=== PATIENT | male | born 1960 | race Caucasian/White ===

== ENCOUNTER 2019-02-23 16:40 | Inpatient (IN) | payer OTHER ==
[2019-02-23 18:07] VITALS: BMI 29.9
--- NOTE | 2019-02-23 19:52 | HP ---
CIWA Score Nausea/Vomitin Muscle Tremors: 3 Anxiety: 3 Agitation: 0-Normal Activity Paroxysmal Sweats: 2 Orientation: 0-Oriented Tacttile Disturbances: 1-Very Mild Itch/Numbness Auditory Disturbances: 0-None Visual Disturbances: 0-None Headache: 2-Mild CIWA-Ar Total Score: 14 - Admission Criteria OASAS Guidelines: Admission for Medically Managed Detox: Requires at least one of the followin. CIWA greater than 12 2. Seizures within the past 24 hours 3. Delirium tremens within the past 24 hours 4. Hallucinations within the past 24 hours 5. Acute intervention needed for co occurring medical disorder 6. Acute intervention needed for co occurring psychiatric disorder 7. Severe withdrawal that cannot be handled at a lower level of care (continued vomiting, continued diarrhea, abnormal vital signs) requiring intravenous medication and/or fluids 8. Admitting History and Physical - Admission Chief Complaint: alcohol withdrawal History of Present Illness: Patient is a 58 yo male with hx of alcohol dependence is here seeking inpatient detox d/t with withdrawal sx. Reports hx of frequent ETOH blackouts, denies hx of seizures MMTP at [facility] [phone] on 100 mg reports last medicated yesterday, dose pending verification PMHX: DM II, Hep C Psych: schizophrenia non-adherent with meds History Source: Patient Limitations to Obtaining History: No Limitations - Past Medical History Psych: Yes: Schizophrenia Admission [facility] Allergies/Adverse Reactions: Allergies Allergy/AdvReac Type Severity Reaction Status Date / Time No Known Allergies Allergy Verified 02/23/19 18:02 Exam Limitations: No Limitations - Ebola screening Have you traveled outside of the country in the last 21 days: No (N) Have you had contact with anyone from an Ebola affected area: No Do you have a fever: No - Review of Systems Constitutional: Chills, Changes in sleep, Weakness EENT: reports: No Symptoms Reported Respiratory: reports: SOB with Exertion Cardiac: reports: No Symptoms Reported GI: reports: Nausea, Poor Appetite, Poor Fluid Intake, Vomiting, Abdominal cramping : reports: No Symptoms Reported Musculoskeletal: reports: Back Pain, Joint Pain Integumentary: reports: No Symptoms Reported Neuro: reports: Headache Endocrine: reports: No Symptoms Reported Hematology: reports: No Symptoms Reported Psychiatric: reports: Orientated x3, Anxious Other Systems: Reviewed and Negative Patient History - Patient Medical History Hx Anemia: No Hx Asthma: No Hx Chronic Obstructive Pulmonary Disease (COPD): No Hx Cancer: No Hx Cardiac Disorders: No Hx Congestive Heart Failure: No Hx Hypertension: No Hx Hypercholesterolemia: No Hx Pacemaker: No HX Cerebrovascular Accident: No Hx Seizures: No Hx Dementia: No Hx Diabetes: No Hx Gastrointestinal Disorders: No Hx Liver Disease: Yes (Hep C) Hx Genitourinary Disorders: No Hx Sexually Transmitted Disorders: No Hx Renal Disease (ESRD): No Hx Thyroid Disease: No Hx Human Immunodeficiency Virus (HIV): No Hx Hepatitis C: No Hx Depression: No Hx Suicide Attempt: No Hx Bipolar Disorder: No Hx Schizophrenia: Yes - Patient Surgical History Past Surgical History: No - PPD History Previous Implant?: No Documented Results: Negative w/o proof PPD to be Administered?: Yes - Smoking Cessation Smoking history: Current every day smoker Have you smoked in the past 12 months: Yes Aproximately how many cigarettes per day: 4 Hx Chewing Tobacco Use: No Initiated information on smoking cessation: Yes 'Breaking Loose' booklet given: 02/23/19 - Substance & Tx. History Hx Alcohol Use: Yes Hx Substance Use: Yes Substance Use Type: Alcohol Hx Substance Use Treatment: Yes ([facility] six month ago ) - Substances abused Alcohol Substance route: Oral Frequency: Daily Amount used: 6 PINTS OF VODKA/DAY-10 (24 oz beers) Age of first use: 15 Date of last use: 02/23/19 Admission Physical Exam BHS - Vital Signs Vital Signs: Vital Signs - 24 hr 02/23/19 18:04 Pulse Rate 101 H Respiratory 16 Rate Blood Pressure 163/90 - Physical General Appearance: Yes: Appropriately Dressed, Tremorous, Sweating, Anxious HEENTM: Yes: EOMI, Hearing grossly Normal, Normal ENT Inspection, Normocephalic , Normal Voice, KARINE, Pharynx Normal, Tm's normal, Other (cheilithis) Respiratory: Yes: Chest Non-Tender, Lungs Clear, No Respiratory Distress, No Accessory Muscle Use, Wheezing Neck: Yes: Within Normal Limits Breast: Yes: Breast Exam Deferred Cardiology: Yes: Regular Rhythm, Tachycardia Abdominal: Yes: Normal Bowel Sounds, Non Tender, Soft, Protuberent Genitourinary: Yes: Within Normal Limits Back: Yes: Normal Inspection Musculoskeletal: Yes: full range of Motion, Gait Steady, Pelvis Stable Extremities: Yes: Normal Capillary Refill, Normal Inspection, Normal Range of Motion, Non-Tender 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 intact, Fully Oriented, Alert, Motor Strength 5/5, Normal Response, Depressed Affect Integumentary: Yes: Normal Color, Dry, Warm, Other (LACERATION ON RIGHT BIG TOE , NO CELLULITIS) Lymphatic: Yes: Within Normal Limits - Diagnostic (1) Alcohol dependence with withdrawal, uncomplicated Current Visit: Yes Status: Acute (2) Methadone maintenance therapy patient Current Visit: Yes Status: Chronic Comment: MMTP 100 mg qd on [facility] dose pending verification (3) Chronic viral hepatitis C Current Visit: Yes Status: Chronic (4) Ambulates with cane Current Visit: Yes Status: Chronic (5) Wheezing Current Visit: Yes Status: Acute (6) Laceration Current Visit: Yes Status: Acute Cleared for Admission S - Detox or Rehab [facility] Level of Care: Medically Managed (ATIVAN DETOX) Breathalyzer - Breathalyzer Breathalyzer: 87 Urine Drug Screen - Test Device Lot number: [id number] Expiration date: 11/10/20 - Control Is test valid?: Yes - Results Drug screen NEGATIVE: No Urine drug screen results: MTD-Methadone Inpatient Rehab Admission - Rehab Decision to Admit Inpatient rehab admission?: No
[2019-02-23] MEDS ORDERED: MENTHOL/PHENOL 1 EACH UD MM PRN (19:57)
[2019-02-23] MEDS ORDERED: LORazepam 1 MG TABLET PO PRN (19:57)
[2019-02-23] MEDS ORDERED: MAGNESIUM HYDROX 2400MG/30ML ORAL SUSPENSION 30 ML CUP PO PRN (19:57)
[2019-02-23] MEDS ORDERED: BISMUTH SUBSALICYLATE 524 MG/30 ML UD PO PRN (19:57)
[2019-02-23] MEDS ORDERED: IBUPROFEN 400 MG TABLET (FP) PO PRN (19:57)
[2019-02-23] MEDS ORDERED: NICOTINE POLACRILEX 2 MG GUM BUC PRN (19:57)
[2019-02-23] MEDS ORDERED: MAGNESIUM CITRATE 300 ML BOTTLE PO PRN (19:57)
[2019-02-23] MEDS ORDERED: MAG HYDROX/AL HYDROX/SIMETH 30 ML UNIT-DOSE CUP PO PRN (19:57)
[2019-02-23] MEDS ORDERED: METHOCARBAMOL 500 MG TABLET PO PRN (19:57)
[2019-02-23] MEDS ORDERED: ALBUTEROL SO4 0.083% IH SOL 2.5 MG/3 ML VIAL.NEB. NEB PRN (20:04)
[2019-02-23] MEDS: LORazepam 2 MG TABLET PO SCH (22:57)
[2019-02-23] MEDS: THIAMINE HCL 100 MG TABLET (FP) PO SCH (22:58)
[2019-02-23] MEDS: BACITRACIN 15 GM TUBE TOPICAL OINTMENT TP SCH (22:58)
[2019-02-24] MEDS: LORazepam 2 MG TABLET PO SCH ×4 (06:21→22:47)
[2019-02-24 09:38] LABS: HEMATOCRIT 29.2 % (35.4-49); HEMOGLOBIN 9.9 GM/dL (11.7-16.9); MCH 36.3 pg (25.7-33.7); MEAN CELL VOLUME 106.5 fl (80-96); MEAN PLT VOLUME 9.6 fl (7.5-11.1); RBC 2.74 M/mm3 (4.00-5.60); RDW 16.4 % (11.9-15.9); WHITE BLOOD COUNT 2.3 K/mm3 (4.0-10.0)
[2019-02-24 09:50] LABS: PLATELET COUNT 25 K/MM3 (134-434)
[2019-02-24] MEDS ORDERED: METHADONE HCL 10 MG TABLET ONE (09:54)
[2019-02-24] MEDS ORDERED: METHADONE HCL 40 MG DISPERSABLE TABLET ONE (09:54)
[2019-02-24] MEDS ORDERED: METHADONE 80 MG, METHADONE 10 MG PO ONE (10:00)
[2019-02-24] MEDS ORDERED: METHADONE HCL 10 MG TABLET PO ONE (10:00)
[2019-02-24 10:03] LABS: ALBUMIN 1.8 g/dl (3.4-5.0); BILIRUBIN,TOTAL 4.5 mg/dL (0.2-1); BLOOD UREA NITROGEN 7.3 mg/dL (7-18); CALCIUM 7.6 mg/dL (8.5-10.1); CREATININE 0.9 mg/dL (0.55-1.3); POTASSIUM 3.2 mmol/L (3.5-5.1); TOT PROT 7.7 g/dl (6.4-8.2)
[2019-02-24] MEDS: PRENATAL VITAMINS W/ FOLIC ACID TABLET (FP) PO SCH (10:26)
[2019-02-24] MEDS: NICOTINE 14 MG/24 HOURS TOPICAL PATCH TD SCH (10:29)
[2019-02-24] MEDS: BACITRACIN 15 GM TUBE TOPICAL OINTMENT TP SCH ×2 (13:13→22:47)
--- NOTE | 2019-02-24 13:24 | PN ---
S CIWA - CIWA Score Nausea/Vomitin-Mild Nausea/No Vomiting Muscle Tremors: 2 Anxiety: 3 Agitation: 2 Paroxysmal Sweats: 2 Orientation: 0-Oriented Tacttile Disturbances: 1-Very Mild Itch/Numbness Auditory Disturbances: 1-Very Mild Visual Disturbances: 0-None Headache: 1-Very Mild CIWA-Ar Total Score: 13 S Progress Note (SOAP) Subjective: 58 years old male admitted on 02/22/19 for alcohol withdrawal sx management treted with librium detox regimen taking methadone 100mg po daily last dose 02/22/19 begin methadone 90 mg po today and resume 100mg tomorrow patient agrees methadone arrangement Objective: 02/24/19 14:06 Vital Signs Temperature 98.3 F 02/24/19 13:15 Pulse Rate 93 H 02/24/19 13:15 Respiratory Rate 16 02/24/19 13:15 Blood Pressure 163/81 02/24/19 13:15 O2 Sat by Pulse Oximetry (%) Laboratory Last Values WBC 2.3 K/mm3 (4.0-10.0) L 02/24/19 07:35 RBC 2.74 M/mm3 (4.00-5.60) L 02/24/19 07:35 Hgb 9.9 GM/dL (11.7-16.9) L 02/24/19 07:35 Hct 29.2 % (35.4-49) L 02/24/19 07:35 MCV 106.5 fl (80-96) H 02/24/19 07:35 MCH 36.3 pg (25.7-33.7) H 02/24/19 07:35 MCHC 34.0 g/dl (32.0-35.9) 02/24/19 07:35 RDW 16.4 % (11.9-15.9) H 02/24/19 07:35 Plt Count 25 K/MM3 (134-434) L* 02/24/19 07:35 MPV 9.6 fl (7.5-11.1) 02/24/19 07:35 Sodium 139 mmol/L (136-145) 02/24/19 07:35 Potassium 3.2 mmol/L (3.5-5.1) L 02/24/19 07:35 Chloride 107 mmol/L (98-107) 02/24/19 07:35 Carbon Dioxide 28 mmol/L (21-32) 02/24/19 07:35 Anion Gap 4 MMOL/L (8-16) L 02/24/19 07:35 BUN 7.3 mg/dL (7-18) 02/24/19 07:35 Creatinine 0.9 mg/dL (0.55-1.3) 02/24/19 07:35 Est GFR (CKD-EPI)AfAm 108.73 02/24/19 07:35 Est GFR (CKD-EPI)NonAf 93.82 02/24/19 07:35 Random Glucose 96 mg/dL (74-106) 02/24/19 07:35 Calcium 7.6 mg/dL (8.5-10.1) L 02/24/19 07:35 Total Bilirubin 4.5 mg/dL (0.2-1) H 02/24/19 07:35 AST 105 U/L (15-37) H 02/24/19 07:35 ALT 32 U/L (13-61) 02/24/19 07:35 Alkaline Phosphatase 123 U/L (45-117) H 02/24/19 07:35 Total Protein 7.7 g/dl (6.4-8.2) 02/24/19 07:35 Albumin 1.8 g/dl (3.4-5.0) L 02/24/19 07:35 RPR Titer Nonreactive (NONREACTIVE) 02/24/19 07:35 lab noted low plt discontinue motrin low K+ begin K+ supplement repeat K+ 02/24/19 14:10 Assessment: 02/24/19 14:10 alcohol withdrawal sx Plan: continue librium detox regimen
[2019-02-24] MEDS ORDERED: POTASSIUM CHLORIDE ORAL LIQUID 20 MEQ/15 ML PO ONE (14:08)
--- NOTE | 2019-02-24 16:58 | CONSULT ---
[facility] Psychiatric Consult - Data Date of interview: 02/24/19 Admission source: [facility] Identifying data: Clinical Quality Assurance Specialist approached for ticket writer for psychiatric consultation but patient was lethargic and somnolent. Nursing staff informed. Psychiatric consultation deferred.
[2019-02-24] MEDS: THIAMINE HCL 100 MG TABLET (FP) PO SCH (22:47)
[2019-02-24] MEDS: POTASSIUM CHLORIDE TABS 20 MEQ TABLET.ER (FP) PO SCH (22:47)
[2019-02-25] MEDS ORDERED: METHADONE HCL 40 MG DISPERSABLE TABLET ONE (04:54)
[2019-02-25] MEDS ORDERED: METHADONE HCL 10 MG TABLET ONE (04:54)
[2019-02-25] MEDS ORDERED: METHADONE HCL 40 MG DISPERSABLE TABLET PO SCH (06:00)
[2019-02-25] MEDS: METHADONE 80 MG, METHADONE 20 MG PO SCH (06:46)
[2019-02-25] MEDS: LORazepam 1 MG TABLET PO SCH ×4 (06:47→22:01)
[2019-02-25] MEDS: BACITRACIN 15 GM TUBE TOPICAL OINTMENT TP SCH ×2 (10:44→21:43)
[2019-02-25 10:47] LABS: BASO % 0.5 % (0-2.0); EOS % 3.2 % (0-4.5); HEMATOCRIT 31.9 % (35.4-49); HEMOGLOBIN 10.7 GM/dL (11.7-16.9); LYMPH % 25.3 % (8-40); MCH 36.2 pg (25.7-33.7); MCHC 33.4 g/dl (32.0-35.9); MEAN CELL VOLUME 108.3 fl (80-96); MEAN PLT VOLUME 9.8 fl (7.5-11.1); RBC 2.94 M/mm3 (4.00-5.60); RDW 16.6 % (11.9-15.9); WHITE BLOOD COUNT 3.2 K/mm3 (4.0-10.0)
[2019-02-25 10:50] LABS: PLATELET COUNT 36 K/MM3 (134-434)
[2019-02-25] MEDS: POTASSIUM CHLORIDE TABS 20 MEQ TABLET.ER (FP) PO SCH ×2 (10:50→10:54)
[2019-02-25] MEDS: PRENATAL VITAMINS W/ FOLIC ACID TABLET (FP) PO SCH (10:50)
[2019-02-25] MEDS: NICOTINE 14 MG/24 HOURS TOPICAL PATCH TD SCH (10:50)
[2019-02-25 12:18] LABS: ANISOCYTOSIS 1+; MACROCYTOSIS 2+; PLATELET ESTIMATE DECREASED
--- NOTE | 2019-02-25 12:18 | PN ---
S CIWA - CIWA Score Nausea/Vomitin-Mild Nausea/No Vomiting Muscle Tremors: 1-None Visible, but [place] Anxiety: 1-Mildly Anxious Agitation: 1-Slight > Activity Paroxysmal Sweats: No Perspiration Orientation: 0-Oriented Tacttile Disturbances: 1-Very Mild Itch/Numbness Auditory Disturbances: 0-None Visual Disturbances: 0-None Headache: 2-Mild CIWA-Ar Total Score: 7 BHS Progress Note (SOAP) Subjective: alert,drowsy at time,nausea Objective: 02/25/19 12:17 Vital Signs Temperature 97.6 F 02/25/19 09:13 Pulse Rate 97 H 02/25/19 09:13 Respiratory Rate 16 02/25/19 09:13 Blood Pressure 145/79 02/25/19 09:13 O2 Sat by Pulse Oximetry (%) Laboratory Results - last 24 hr 02/24/19 02/25/19 02/25/19 16:21 06:27 07:00 WBC RBC Hgb Hct MCV MCH MCHC RDW Plt Count MPV Absolute Neuts (auto) Neutrophils % Lymphocytes % Monocytes % Eosinophils % Basophils % Nucleated RBC % Potassium 5.0 POC Glucometer 119 77 02/25/19 07:00 WBC 3.2 L RBC 2.94 L Hgb 10.7 L Hct 31.9 L MCV 108.3 H MCH 36.2 H MCHC 33.4 RDW 16.6 H Plt Count 36 L* D MPV 9.8 Absolute Neuts (auto) 1.9 Neutrophils % 59.0 Lymphocytes % 25.3 Monocytes % 12.0 H Eosinophils % 3.2 Basophils % 0.5 Nucleated RBC % 0 Potassium POC Glucometer Assessment: 02/25/19 12:17 withdrawal symptom Plan: continue detox ativan regimen,,platelet count 36k,repeat cbc,cmp,inr in am, ammonia level in am
[2019-02-25] MEDS: THIAMINE HCL 100 MG TABLET (FP) PO SCH (21:43)
[2019-02-26] MEDS ORDERED: LORazepam 0.5 MG TABLET PO PRN
[2019-02-26] MEDS ORDERED: METHADONE HCL 10 MG TABLET ONE (06:10)
[2019-02-26] MEDS ORDERED: METHADONE HCL 40 MG DISPERSABLE TABLET ONE (06:10)
[2019-02-26] MEDS: METHADONE 80 MG, METHADONE 20 MG PO SCH (06:21)
[2019-02-26] MEDS: LORazepam 0.5 MG TABLET PO SCH ×4 (06:22→23:37)
[2019-02-26 10:26] LABS: HEMATOCRIT 31.3 % (35.4-49); HEMOGLOBIN 10.6 GM/dL (11.7-16.9); MCH 36.6 pg (25.7-33.7); MCHC 33.8 g/dl (32.0-35.9); MEAN CELL VOLUME 108.5 fl (80-96); MEAN PLT VOLUME 9.4 fl (7.5-11.1); PLATELET COUNT 38 K/MM3 (134-434); RBC 2.89 M/mm3 (4.00-5.60); RDW 16.5 % (11.9-15.9)
[2019-02-26 10:35] LABS: ALBUMIN 1.8 g/dl (3.4-5.0); BILIRUBIN,TOTAL 3.4 mg/dL (0.2-1); BLOOD UREA NITROGEN 10.3 mg/dL (7-18); CALCIUM 8.3 mg/dL (8.5-10.1); CREATININE 1.1 mg/dL (0.55-1.3); INR 1.94 (0.83-1.09); POTASSIUM 3.7 mmol/L (3.5-5.1); TOT PROT 8.3 g/dl (6.4-8.2)
[2019-02-26] MEDS: BACITRACIN 15 GM TUBE TOPICAL OINTMENT TP SCH ×2 (10:42→23:14)
[2019-02-26] MEDS: NICOTINE 14 MG/24 HOURS TOPICAL PATCH TD SCH (10:42)
[2019-02-26] MEDS: PRENATAL VITAMINS W/ FOLIC ACID TABLET (FP) PO SCH (10:42)
--- NOTE | 2019-02-26 11:16 | PN ---
S CIWA - CIWA Score Nausea/Vomitin-No Nausea/No Vomiting Muscle Tremors: None Anxiety: 1-Mildly Anxious Agitation: 0-Normal Activity Paroxysmal Sweats: 2 Orientation: 0-Oriented Tacttile Disturbances: 0-None Auditory Disturbances: 0-None Visual Disturbances: 0-None Headache: 0-None Present CIWA-Ar Total Score: 3 BHS Progress Note (SOAP) Subjective: c/o mild sweats and headache. Objective: 02/26/19 11:14 Vital Signs 02/26/19 02/26/19 02/26/19 03:30 06:34 09:13 Temperature 97.6 F 96.6 F L Pulse Rate 93 H 95 H Respiratory 18 18 18 Rate Blood Pressure 128/80 119/74 Laboratory Last Values WBC 3.0 K/mm3 (4.0-10.0) L 02/26/19 07:55 RBC 2.89 M/mm3 (4.00-5.60) L 02/26/19 07:55 Hgb 10.6 GM/dL (11.7-16.9) L 02/26/19 07:55 Hct 31.3 % (35.4-49) L 02/26/19 07:55 MCV 108.5 fl (80-96) H 02/26/19 07:55 MCH 36.6 pg (25.7-33.7) H 02/26/19 07:55 MCHC 33.8 g/dl (32.0-35.9) 02/26/19 07:55 RDW 16.5 % (11.9-15.9) H 02/26/19 07:55 Plt Count 38 K/MM3 (134-434) L 02/26/19 07:55 MPV 9.4 fl (7.5-11.1) 02/26/19 07:55 Absolute Neuts (auto) 1.9 K/mm3 (1.5-8.0) 02/25/19 07:00 Neutrophils % 59.0 % (42.8-82.8) 02/25/19 07:00 Lymphocytes % 25.3 % (8-40) 02/25/19 07:00 Monocytes % 12.0 % (3.8-10.2) H 02/25/19 07:00 Eosinophils % 3.2 % (0-4.5) 02/25/19 07:00 Basophils % 0.5 % (0-2.0) 02/25/19 07:00 Nucleated RBC % 0 % (0-0) 02/25/19 07:00 Platelet Estimate Decreased 02/25/19 07:00 Anisocytosis 1+ 02/25/19 07:00 Macrocytosis 2+ 02/25/19 07:00 PT with INR 23.00 SEC (9.7-13.0) H 02/26/19 07:55 INR 1.94 (0.83-1.09) H 02/26/19 07:55 Sodium 137 mmol/L (136-145) 02/26/19 07:55 Potassium 3.7 mmol/L (3.5-5.1) 02/26/19 07:55 Chloride 103 mmol/L (98-107) 02/26/19 07:55 Carbon Dioxide 28 mmol/L (21-32) 02/26/19 07:55 Anion Gap 6 MMOL/L (8-16) L 02/26/19 07:55 BUN 10.3 mg/dL (7-18) 02/26/19 07:55 Creatinine 1.1 mg/dL (0.55-1.3) 02/26/19 07:55 Est GFR (CKD-EPI)AfAm 85.31 02/26/19 07:55 Est GFR (CKD-EPI)NonAf 73.61 02/26/19 07:55 POC Glucometer 113 UNITS (80-120) 02/26/19 06:33 Random Glucose 107 mg/dL (74-106) H 02/26/19 07:55 Calcium 8.3 mg/dL (8.5-10.1) L 02/26/19 07:55 Total Bilirubin 3.4 mg/dL (0.2-1) H 02/26/19 07:55 AST 94 U/L (15-37) H 02/26/19 07:55 ALT 32 U/L (13-61) 02/26/19 07:55 Alkaline Phosphatase 148 U/L (45-117) H 02/26/19 07:55 Ammonia 95.80 umol/L (11-32) H 02/26/19 07:55 Total Protein 8.3 g/dl (6.4-8.2) H 02/26/19 07:55 Albumin 1.8 g/dl (3.4-5.0) L 02/26/19 07:55 RPR Titer Nonreactive (NONREACTIVE) 02/24/19 07:35 Labs noted. Assessment: 02/26/19 11:14 AOX3, in no acute respiratory distress. Full ROM, ambulating in the unit. Mild withdrawal symptoms. For D/C tomorrow. 02/26/19 11:15 Plan: continue detox. D/C in AM.
[2019-02-26] MEDS ORDERED: LACTULOSE 20 GM/30 ML UDC (FOR ORAL USE ONLY) PO STA (23:15)
[2019-02-26] MEDS: THIAMINE HCL 100 MG TABLET (FP) PO SCH (23:37)
[2019-02-27] MEDS ORDERED: LORazepam 0.5 MG TABLET PO ONE (05:00)
[2019-02-27] MEDS: LACTULOSE 20 GM/30 ML UDC (FOR ORAL USE ONLY) PO SCH ×3 (07:54→23:11)
--- NOTE | 2019-02-27 07:54 | PN ---
S Progress Note Note: SEEN FOR ELEVATED AMMONIA LEVEL. 95. CLIENT PRESENTLY SLEEPING. PER STAFF CLIENT IS MILDLY CONFUSED BUT EASILY REDIRECTED. CLIENT IS SCHEDULE FOR DC TODAY. WILL POSTPONE DC P- DC DISCHARGE START LACTULOSE 20GM TID- CONSIDER DECREASE AFTER 1ST BM MONITOR FOR SAFETY CONSIDER 1:1 FOR WORSENING CONFUSION
[2019-02-27] MEDS: METHADONE 80 MG, METHADONE 20 MG PO SCH (10:12)
[2019-02-27] MEDS ORDERED: METHADONE HCL 10 MG TABLET ONE (10:12)
[2019-02-27] MEDS ORDERED: METHADONE HCL 40 MG DISPERSABLE TABLET ONE (10:12)
[2019-02-27] MEDS: PRENATAL VITAMINS W/ FOLIC ACID TABLET (FP) PO SCH (10:15)
[2019-02-27] MEDS: BACITRACIN 15 GM TUBE TOPICAL OINTMENT TP SCH ×2 (10:15→23:11)
[2019-02-27] MEDS: NICOTINE 14 MG/24 HOURS TOPICAL PATCH TD SCH (10:16)
--- NOTE | 2019-02-27 12:36 | PN ---
[facility] CIWA - CIWA Score Nausea/Vomitin-No Nausea/No Vomiting Muscle Tremors: 1-None Visible, but [place] Anxiety: 0-No Anxiety, at Ease Agitation: 0-Normal Activity Paroxysmal Sweats: No Perspiration Orientation: 2-Disoriented Date<2 days (to place to day of month) Tacttile Disturbances: 0-None Auditory Disturbances: 0-None Visual Disturbances: 0-None Headache: 0-None Present CIWA-Ar Total Score: 3 S Progress Note (SOAP) Subjective: 58 years old male admitted on 02/23/19 for alcohol withdrawal sx management treated with librium detox regimen became confused with ammonia elevation treated with lactulose tid patient has fluctuated mental status during lunch time patient is alert good eye contact eating lunch independently no trouble chewing no trouble swallowing more alert carry conversation with staff oriented to place and date of week continue lactulose Objective: 02/27/19 12:40 Vital Signs Temperature 98.9 F 02/27/19 09:48 Pulse Rate 76 02/27/19 09:48 Respiratory Rate 18 02/27/19 09:48 Blood Pressure 142/95 02/27/19 09:48 O2 Sat by Pulse Oximetry (%) Laboratory Last Values WBC 3.0 K/mm3 (4.0-10.0) L 02/26/19 07:55 RBC 2.89 M/mm3 (4.00-5.60) L 02/26/19 07:55 Hgb 10.6 GM/dL (11.7-16.9) L 02/26/19 07:55 Hct 31.3 % (35.4-49) L 02/26/19 07:55 MCV 108.5 fl (80-96) H 02/26/19 07:55 MCH 36.6 pg (25.7-33.7) H 02/26/19 07:55 MCHC 33.8 g/dl (32.0-35.9) 02/26/19 07:55 RDW 16.5 % (11.9-15.9) H 02/26/19 07:55 Plt Count 38 K/MM3 (134-434) L 02/26/19 07:55 MPV 9.4 fl (7.5-11.1) 02/26/19 07:55 Absolute Neuts (auto) 1.9 K/mm3 (1.5-8.0) 02/25/19 07:00 Neutrophils % 59.0 % (42.8-82.8) 02/25/19 07:00 Lymphocytes % 25.3 % (8-40) 02/25/19 07:00 Monocytes % 12.0 % (3.8-10.2) H 02/25/19 07:00 Eosinophils % 3.2 % (0-4.5) 02/25/19 07:00 Basophils % 0.5 % (0-2.0) 02/25/19 07:00 Nucleated RBC % 0 % (0-0) 02/25/19 07:00 Platelet Estimate Decreased 02/25/19 07:00 Anisocytosis 1+ 02/25/19 07:00 Macrocytosis 2+ 02/25/19 07:00 PT with INR 23.00 SEC (9.7-13.0) H 02/26/19 07:55 INR 1.94 (0.83-1.09) H 02/26/19 07:55 Sodium 137 mmol/L (136-145) 02/26/19 07:55 Potassium 3.7 mmol/L (3.5-5.1) 02/26/19 07:55 Chloride 103 mmol/L (98-107) 02/26/19 07:55 Carbon Dioxide 28 mmol/L (21-32) 02/26/19 07:55 Anion Gap 6 MMOL/L (8-16) L 02/26/19 07:55 BUN 10.3 mg/dL (7-18) 02/26/19 07:55 Creatinine 1.1 mg/dL (0.55-1.3) 02/26/19 07:55 Est GFR (CKD-EPI)AfAm 85.31 02/26/19 07:55 Est GFR (CKD-EPI)NonAf 73.61 02/26/19 07:55 POC Glucometer 147 UNITS (80-120) 02/26/19 16:37 Random Glucose 107 mg/dL (74-106) H 02/26/19 07:55 Calcium 8.3 mg/dL (8.5-10.1) L 02/26/19 07:55 Total Bilirubin 3.4 mg/dL (0.2-1) H 02/26/19 07:55 AST 94 U/L (15-37) H 02/26/19 07:55 ALT 32 U/L (13-61) 02/26/19 07:55 Alkaline Phosphatase 148 U/L (45-117) H 02/26/19 07:55 Ammonia 95.80 umol/L (11-32) H 02/26/19 07:55 Total Protein 8.3 g/dl (6.4-8.2) H 02/26/19 07:55 Albumin 1.8 g/dl (3.4-5.0) L 02/26/19 07:55 RPR Titer Nonreactive (NONREACTIVE) 02/24/19 07:35 denies pain abdomen soft round no rebound tenderness encourage lactulose 02/27/19 12:43 Assessment: 02/27/19 12:43 alcohol withdrawal sx Plan: continue librium detox regimen
[2019-02-27] MEDS: THIAMINE HCL 100 MG TABLET (FP) PO SCH (23:11)
[2019-02-27] MEDS: MELATONIN 5 MG TABLETS PO PRN (23:11)
[2019-02-28] MEDS: LACTULOSE 20 GM/30 ML UDC (FOR ORAL USE ONLY) PO SCH ×3 (06:20→21:25)
[2019-02-28] MEDS ORDERED: METHADONE HCL 10 MG TABLET ONE (06:22)
[2019-02-28] MEDS ORDERED: METHADONE HCL 40 MG DISPERSABLE TABLET ONE (06:22)
[2019-02-28] MEDS: METHADONE 80 MG, METHADONE 20 MG PO SCH (06:22)
[2019-02-28] MEDS: BACITRACIN 15 GM TUBE TOPICAL OINTMENT TP SCH ×2 (10:17→21:25)
[2019-02-28] MEDS: NICOTINE 14 MG/24 HOURS TOPICAL PATCH TD SCH (10:18)
[2019-02-28] MEDS: PRENATAL VITAMINS W/ FOLIC ACID TABLET (FP) PO SCH (10:18)
--- NOTE | 2019-02-28 15:20 | PN ---
S CIWA - CIWA Score Nausea/Vomitin-No Nausea/No Vomiting Muscle Tremors: 1-None Visible, but [place] Anxiety: 1-Mildly Anxious Agitation: 0-Normal Activity Paroxysmal Sweats: No Perspiration Orientation: 0-Oriented Tacttile Disturbances: 0-None Auditory Disturbances: 0-None Visual Disturbances: 0-None Headache: 0-None Present CIWA-Ar Total Score: 2 S Progress Note (SOAP) Subjective: 58 years old male admitted on 02/23/19 for alcohol withdrawal sx management treated with librium detox regimen patient is alert and good oriented to time place and person after lunch patient has long history of hepatitis c and liver cirrhosis due to ammonia serum elevation with mild confusion in the morning ambulating from room to day room return to room without difficulty ambulating with cane slowly and steady gait repeat ammonia level repeat cbc camp and inr Objective: 02/28/19 15:27 Vital Signs Temperature 97.1 F L 02/28/19 13:13 Pulse Rate 85 02/28/19 13:13 Respiratory Rate 18 02/28/19 13:13 Blood Pressure 129/79 02/28/19 13:13 O2 Sat by Pulse Oximetry (%) Laboratory Last Values WBC 3.0 K/mm3 (4.0-10.0) L 02/26/19 07:55 RBC 2.89 M/mm3 (4.00-5.60) L 02/26/19 07:55 Hgb 10.6 GM/dL (11.7-16.9) L 02/26/19 07:55 Hct 31.3 % (35.4-49) L 02/26/19 07:55 MCV 108.5 fl (80-96) H 02/26/19 07:55 MCH 36.6 pg (25.7-33.7) H 02/26/19 07:55 MCHC 33.8 g/dl (32.0-35.9) 02/26/19 07:55 RDW 16.5 % (11.9-15.9) H 02/26/19 07:55 Plt Count 38 K/MM3 (134-434) L 02/26/19 07:55 MPV 9.4 fl (7.5-11.1) 02/26/19 07:55 Absolute Neuts (auto) 1.9 K/mm3 (1.5-8.0) 02/25/19 07:00 Neutrophils % 59.0 % (42.8-82.8) 02/25/19 07:00 Lymphocytes % 25.3 % (8-40) 02/25/19 07:00 Monocytes % 12.0 % (3.8-10.2) H 02/25/19 07:00 Eosinophils % 3.2 % (0-4.5) 02/25/19 07:00 Basophils % 0.5 % (0-2.0) 02/25/19 07:00 Nucleated RBC % 0 % (0-0) 02/25/19 07:00 Platelet Estimate Decreased 02/25/19 07:00 Anisocytosis 1+ 02/25/19 07:00 Macrocytosis 2+ 02/25/19 07:00 PT with INR 23.00 SEC (9.7-13.0) H 02/26/19 07:55 INR 1.94 (0.83-1.09) H 02/26/19 07:55 Sodium 137 mmol/L (136-145) 02/26/19 07:55 Potassium 3.7 mmol/L (3.5-5.1) 02/26/19 07:55 Chloride 103 mmol/L (98-107) 02/26/19 07:55 Carbon Dioxide 28 mmol/L (21-32) 02/26/19 07:55 Anion Gap 6 MMOL/L (8-16) L 02/26/19 07:55 BUN 10.3 mg/dL (7-18) 02/26/19 07:55 Creatinine 1.1 mg/dL (0.55-1.3) 02/26/19 07:55 Est GFR (CKD-EPI)AfAm 85.31 02/26/19 07:55 Est GFR (CKD-EPI)NonAf 73.61 02/26/19 07:55 POC Glucometer 100 UNITS (80-120) 02/27/19 17:29 Random Glucose 107 mg/dL (74-106) H 02/26/19 07:55 Calcium 8.3 mg/dL (8.5-10.1) L 02/26/19 07:55 Total Bilirubin 3.4 mg/dL (0.2-1) H 02/26/19 07:55 AST 94 U/L (15-37) H 02/26/19 07:55 ALT 32 U/L (13-61) 02/26/19 07:55 Alkaline Phosphatase 148 U/L (45-117) H 02/26/19 07:55 Ammonia 95.80 umol/L (11-32) H 02/26/19 07:55 Total Protein 8.3 g/dl (6.4-8.2) H 02/26/19 07:55 Albumin 1.8 g/dl (3.4-5.0) L 02/26/19 07:55 RPR Titer Nonreactive (NONREACTIVE) 02/24/19 07:35 lab noted ammonia elevation treated with lactulose pt elevation inr elevation repeat pending 02/28/19 15:28 Assessment: 02/28/19 15:29 alcohol withdrawal sx Plan: continue medically observation [place] [facility]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
[2019-02-28 16:02] LABS: HEMATOCRIT 30.5 % (35.4-49); MCH 36.3 pg (25.7-33.7); MCHC 32.9 g/dl (32.0-35.9); MEAN CELL VOLUME 110.3 fl (80-96); MEAN PLT VOLUME 10.1 fl (7.5-11.1); PLATELET COUNT 38 K/MM3 (134-434); RBC 2.77 M/mm3 (4.00-5.60); RDW 16.6 % (11.9-15.9); WHITE BLOOD COUNT 3.7 K/mm3 (4.0-10.0)
[2019-02-28 16:31] LABS: ALBUMIN 1.7 g/dl (3.4-5.0); BILIRUBIN,TOTAL 3.1 mg/dL (0.2-1); CALCIUM 8.3 mg/dL (8.5-10.1); CREATININE 1.3 mg/dL (0.55-1.3); POTASSIUM 4.2 mmol/L (3.5-5.1); TOT PROT 7.6 g/dl (6.4-8.2)
[2019-02-28] MEDS ORDERED: ALBUTEROL SO4 0.083% IH SOL 2.5 MG/3 ML VIAL.NEB. NEB PRN (20:04)
[2019-02-28] MEDS: THIAMINE HCL 100 MG TABLET (FP) PO SCH (21:25)
[2019-02-28] MEDS: MELATONIN 5 MG TABLETS PO PRN (21:25)
[2019-03-01] MEDS ORDERED: METHADONE HCL 10 MG TABLET ONE (03:44)
[2019-03-01] MEDS ORDERED: METHADONE HCL 40 MG DISPERSABLE TABLET ONE (03:45)
[2019-03-01] MEDS: METHADONE 80 MG, METHADONE 20 MG PO SCH (05:51)
[2019-03-01] MEDS: LACTULOSE 20 GM/30 ML UDC (FOR ORAL USE ONLY) PO SCH (05:52)
[2019-03-01 09:18] VITALS: BP 138/71; PULSE 97; TEMP 96.7
[2019-03-01] MEDS: BACITRACIN 15 GM TUBE TOPICAL OINTMENT TP SCH (09:42)
[2019-03-01] MEDS: PRENATAL VITAMINS W/ FOLIC ACID TABLET (FP) PO SCH (09:42)
[2019-03-01] MEDS: NICOTINE 14 MG/24 HOURS TOPICAL PATCH TD SCH (09:42)
--- NOTE | 2019-03-01 09:46 | DS ---
[facility] Detox Discharge Summary Admission Date: 02/23/19 Discharge Date: 03/01/19 - History Present History: Alcohol Dependence Additional Comments: 58 years old male admitted on 02/23/19 for alcohol withdrawal sx management treated with librium detox regimen ammonia serum level elevation treated with lactulose Laboratory Last Values WBC 3.7 K/mm3 (4.0-10.0) L 02/28/19 14:00 RBC 2.77 M/mm3 (4.00-5.60) L 02/28/19 14:00 Hgb 10.0 GM/dL (11.7-16.9) L 02/28/19 14:00 Hct 30.5 % (35.4-49) L 02/28/19 14:00 MCV 110.3 fl (80-96) H 02/28/19 14:00 MCH 36.3 pg (25.7-33.7) H 02/28/19 14:00 MCHC 32.9 g/dl (32.0-35.9) 02/28/19 14:00 RDW 16.6 % (11.9-15.9) H 02/28/19 14:00 Plt Count 38 K/MM3 (134-434) L 02/28/19 14:00 MPV 10.1 fl (7.5-11.1) 02/28/19 14:00 Absolute Neuts (auto) 1.9 K/mm3 (1.5-8.0) 02/25/19 07:00 Neutrophils % 59.0 % (42.8-82.8) 02/25/19 07:00 Lymphocytes % 25.3 % (8-40) 02/25/19 07:00 Monocytes % 12.0 % (3.8-10.2) H 02/25/19 07:00 Eosinophils % 3.2 % (0-4.5) 02/25/19 07:00 Basophils % 0.5 % (0-2.0) 02/25/19 07:00 Nucleated RBC % 0 % (0-0) 02/25/19 07:00 Platelet Estimate Decreased 02/25/19 07:00 Anisocytosis 1+ 02/25/19 07:00 Macrocytosis 2+ 02/25/19 07:00 PT with INR 23.00 SEC (9.7-13.0) H 02/26/19 07:55 INR 1.94 (0.83-1.09) H 02/26/19 07:55 Sodium 138 mmol/L (136-145) 02/28/19 14:00 Potassium 4.2 mmol/L (3.5-5.1) 02/28/19 14:00 Chloride 106 mmol/L (98-107) 02/28/19 14:00 Carbon Dioxide 31 mmol/L (21-32) 02/28/19 14:00 Anion Gap 1 MMOL/L (8-16) L 02/28/19 14:00 BUN 12.0 mg/dL (7-18) 02/28/19 14:00 Creatinine 1.3 mg/dL (0.55-1.3) 02/28/19 14:00 Est GFR (CKD-EPI)AfAm 69.71 02/28/19 14:00 Est GFR (CKD-EPI)NonAf 60.14 02/28/19 14:00 POC Glucometer 89 UNITS (80-120) 03/01/19 05:53 Random Glucose 116 mg/dL (74-106) H 02/28/19 14:00 Calcium 8.3 mg/dL (8.5-10.1) L 02/28/19 14:00 Total Bilirubin 3.1 mg/dL (0.2-1) H 02/28/19 14:00 AST 81 U/L (15-37) H 02/28/19 14:00 ALT 29 U/L (13-61) 02/28/19 14:00 Alkaline Phosphatase 121 U/L (45-117) H 02/28/19 14:00 Ammonia 39.90 umol/L (11-32) H 02/28/19 14:00 Total Protein 7.6 g/dl (6.4-8.2) 02/28/19 14:00 Albumin 1.7 g/dl (3.4-5.0) L 02/28/19 14:00 RPR Titer Nonreactive (NONREACTIVE) 02/24/19 07:35 current ammonia level 39 instruct patient to continue taking lactulose and follow up with primary care provider for liver cirrhosis patient is alert oriented to time place and person as well as situation patient wants to go home and continue lactulose and follow up with primary care provider ate breakfast and showered and dressed independently ambulating with cane steady gait respiratory clear lung bilaterally on auscultation skin warm dry abdomen soft obese round no rebound tenderness Pertinent Past History: transportation arranged from detox unit to home by counselor patient agrees to bringing in lab report to methadone program for follow up - Physical Exam Results Vital Signs: Vital Signs Temperature 96.7 F L 03/01/19 09:18 Pulse Rate 97 H 03/01/19 09:18 Respiratory Rate 18 03/01/19 09:18 Blood Pressure 138/71 03/01/19 09:18 O2 Sat by Pulse Oximetry (%) Pertinent Admission Physical Exam Findings: alcohol and benzo withdrawal sx Laboratory Last Values WBC 3.7 K/mm3 (4.0-10.0) L 02/28/19 14:00 RBC 2.77 M/mm3 (4.00-5.60) L 02/28/19 14:00 Hgb 10.0 GM/dL (11.7-16.9) L 02/28/19 14:00 Hct 30.5 % (35.4-49) L 02/28/19 14:00 MCV 110.3 fl (80-96) H 02/28/19 14:00 MCH 36.3 pg (25.7-33.7) H 02/28/19 14:00 MCHC 32.9 g/dl (32.0-35.9) 02/28/19 14:00 RDW 16.6 % (11.9-15.9) H 02/28/19 14:00 Plt Count 38 K/MM3 (134-434) L 02/28/19 14:00 MPV 10.1 fl (7.5-11.1) 02/28/19 14:00 Absolute Neuts (auto) 1.9 K/mm3 (1.5-8.0) 02/25/19 07:00 Neutrophils % 59.0 % (42.8-82.8) 02/25/19 07:00 Lymphocytes % 25.3 % (8-40) 02/25/19 07:00 Monocytes % 12.0 % (3.8-10.2) H 02/25/19 07:00 Eosinophils % 3.2 % (0-4.5) 02/25/19 07:00 Basophils % 0.5 % (0-2.0) 02/25/19 07:00 Nucleated RBC % 0 % (0-0) 02/25/19 07:00 Platelet Estimate Decreased 02/25/19 07:00 Anisocytosis 1+ 02/25/19 07:00 Macrocytosis 2+ 02/25/19 07:00 PT with INR 23.00 SEC (9.7-13.0) H 02/26/19 07:55 INR 1.94 (0.83-1.09) H 02/26/19 07:55 Sodium 138 mmol/L (136-145) 02/28/19 14:00 Potassium 4.2 mmol/L (3.5-5.1) 02/28/19 14:00 Chloride 106 mmol/L (98-107) 02/28/19 14:00 Carbon Dioxide 31 mmol/L (21-32) 02/28/19 14:00 Anion Gap 1 MMOL/L (8-16) L 02/28/19 14:00 BUN 12.0 mg/dL (7-18) 02/28/19 14:00 Creatinine 1.3 mg/dL (0.55-1.3) 02/28/19 14:00 Est GFR (CKD-EPI)AfAm 69.71 02/28/19 14:00 Est GFR (CKD-EPI)NonAf 60.14 02/28/19 14:00 POC Glucometer 89 UNITS (80-120) 03/01/19 05:53 Random Glucose 116 mg/dL (74-106) H 02/28/19 14:00 Calcium 8.3 mg/dL (8.5-10.1) L 02/28/19 14:00 Total Bilirubin 3.1 mg/dL (0.2-1) H 02/28/19 14:00 AST 81 U/L (15-37) H 02/28/19 14:00 ALT 29 U/L (13-61) 02/28/19 14:00 Alkaline Phosphatase 121 U/L (45-117) H 02/28/19 14:00 Ammonia 39.90 umol/L (11-32) H 02/28/19 14:00 Total Protein 7.6 g/dl (6.4-8.2) 02/28/19 14:00 Albumin 1.7 g/dl (3.4-5.0) L 02/28/19 14:00 RPR Titer Nonreactive (NONREACTIVE) 02/24/19 07:35 lab noted strong recommend the patient follows up with GI specialist - Treatment Hospital Course: Detox Protocol Followed, Detoxed Safely, Responded well, Discharged Condition Good, Rehab Referral Accepted Patient has Accepted a Rehab Referral to: [facility] - Medication Discharge Medications: Ambulatory Orders Methadone [Dolophine -] 100 mg PO DAILY 02/23/19 Lactulose (Oral Use) [Cephulac -] 20 gm PO TID #1 udc 03/01/19 - Diagnosis (1) Alcohol dependence with withdrawal, uncomplicated Status: Acute (2) Liver cirrhosis, alcoholic Status: Chronic Qualifiers: Ascites presence: without ascites Qualified Code(s): K70.30 - Alcoholic cirrhosis of liver without ascites (3) Ambulates with cane Status: Chronic (4) Chronic viral hepatitis C Status: Chronic Qualifiers: Hepatic coma status: without hepatic coma Qualified Code(s): B18.2 - Chronic viral hepatitis C (5) Methadone maintenance therapy patient Status: Chronic - AMA Did Patient Leave Against Medical Advice: No CIWA Score - CIWA Score Nausea/Vomitin-No Nausea/No Vomiting Muscle Tremors: 1-None Visible, but [place] Anxiety: 0-No Anxiety, at Ease Agitation: 0-Normal Activity Paroxysmal Sweats: No Perspiration Orientation: 0-Oriented Tacttile Disturbances: 0-None Auditory Disturbances: 0-None Visual Disturbances: 0-None Headache: 0-None Present CIWA-Ar Total Score: 1
[2019-03-01 10:11] LABS: INR 2.05 (0.83-1.09); PROTHROMBIN TIME (PATIENT) 24.4 SEC (9.7-13.0)
== END 2019-03-01 09:25 | disposition home or self-care (01) | DRG 897 ==
LOC: YASAS 16:40 → Y3N 21:10
PROVIDERS: ADMIT Allergy & Immunology; ATTEND Allergy & Immunology
PROC: HZ2ZZZZ Detoxification Services for Substance Abuse Treatment (ICD-10-PCS; principal; 2019-02-23)
DX: F10.230 Alcohol dependence with withdrawal, uncomplicated (principal); F11.20 Opioid dependence, uncomplicated; F13.230 Sedative, hypnotic or anxiolytic dependence with withdrawal, uncomplicated; F20.9 Schizophrenia, unspecified; K70.30 Alcoholic cirrhosis of liver without ascites; B18.2 Chronic viral hepatitis C; E11.9 Type 2 diabetes mellitus without complications; R06.2 Wheezing; Z99.89 Dependence on other enabling machines and devices; S91.111A Laceration without foreign body of right great toe without damage to nail, initial encounter; X58.XXXA Exposure to other specified factors, initial encounter; Y93.9 Activity, unspecified; Y92.89 Other specified places as the place of occurrence of the external cause; Y99.8 Other external cause status
CPT/HCPCS: 36415; 80053; 82140; 82962; 84132; 85025; 85027; 85610; 86593